=== PATIENT | male | born 1995 | race Two or more races ===

== ENCOUNTER 2020-06-12 01:21 | Emergency (ER) | payer OTHER ==
[~2020-06-12] VITALS: Ht 170.2 cm; Wt 75.0 kg
[2020-06-12] MEDS ORDERED: NALOXONE HCL 1 MG/ML 2 ML SYG IVP ONE (01:45)
[2020-06-12 01:57] LABS: BASOPHILS % (AUTO) 0.9 % (0.0-2.0); EOSINOPHILS % (AUTO) 1.7 % (1.0-6.0); HEMOGLOBIN 14.2 g/dL (13.5-17.5); LYMPHOCYTES # (AUTO) 2.3 K/uL (1.0-4.8); LYMPHOCYTES % (AUTO) 26.1 % (22.0-44.0); MEAN CORPUSCULAR HEMOGLOBIN 30.7 pg (26.0-34.0); MEAN CORPUSCULAR HGB CONC 33.9 G/dL (31.0-37.0); MEAN CORPUSCULAR VOLUME 91 fL (80-100); MONOCYTES # (AUTO) 0.7 K/uL (0.1-1.0); MONOCYTES % (AUTO) 7.6 % (2.0-9.0); NEUTROPHILS # (AUTO) 5.7 K/uL (1.8-7.7); NEUTROPHILS % (AUTO) 63.7 % (40.0-70.0); PLATELET COUNT (AUTO) 257 K/uL (150-450); RED BLOOD CELL COUNT(AUTO) 4.64 MIL/uL (4.50-5.90); RED CELL DISTRIBUTION WIDTH 13.8 % (11.5-14.5)
[2020-06-12 02:08] LABS: ANION GAP 10 mmol/L (8-16); CALCIUM, TOTAL 8.2 mg/dL (8.8-10.5); CARBON DIOXIDE 26 mmol/L (22-29); CHLORIDE 103 mmol/L (98-107); CREATININE 0.62 mg/dL (0.60-1.30); GLOMERULAR FILTR. RATE CALC > 60 mL/min (>60); GLUCOSE,RANDOM 106 mg/dL (70-110); POTASSIUM 3.4 mmol/L (3.5-5.1); SODIUM SERUM 139 mmol/L (136-145); UREA NITROGEN, BLOOD 9 mg/dL (7-18)
[2020-06-12 02:14] LABS: ACETAMINOPHEN 4 mcg/mL (10-30); ALANINE AMINOTRANSFERASE 334 U/L (12-78); ALBUMIN 3.3 g/dL (3.4-5.0); ALKALINE PHOSPHATASE 127 U/L (46-116); ASPARTATE AMINOTRANSFERASE 82 U/L (15-37); BILIRUBIN,TOTAL 0.6 mg/dL (0.1-1.0); TOTAL PROTEIN, SERUM 6.7 g/dL (6.4-8.2)
[2020-06-12 02:16] LABS: SALICYLATE < 2.8 mg/dL (2.8-20.0)
[2020-06-12] MEDS ORDERED: FLUMAZENIL 0.1 MG/ML 5 ML VIAL IVP ONE (02:30)
[2020-06-12 03:42] VITALS: BP 119/74
== END 2020-06-12 03:42 | disposition left against medical advice (07) ==
LOC: EMS 01:24
DX: T40.2X1A Poisoning by other opioids, accidental (unintentional), initial encounter (principal); T42.4X1A Poisoning by benzodiazepines, accidental (unintentional), initial encounter; R41.82 Altered mental status, unspecified; R79.89 Other specified abnormal findings of blood chemistry; F13.10 Sedative, hypnotic or anxiolytic abuse, uncomplicated; Y92.89 Other specified places as the place of occurrence of the external cause
CPT/HCPCS: 80053; 85025; 93005; 96374; 96375; 99291; G0480; J2310; J3490; G0481

== ENCOUNTER 2022-10-17 16:00 | Inpatient (IN) | payer OTHER ==
[~2022-10-17] VITALS: Ht 170.2 cm; Wt 76.0 kg
[2022-10-17] MEDS ORDERED: 0.9% SODIUM CHLORIDE 10 ML SYRINGE IVP PRN (17:00)
[2022-10-17] MEDS ORDERED: HYDROmorphone HCL 2 MG/ML SYRINGE IVP ONE (19:15)
[2022-10-17] MEDS ORDERED: ONDANSETRON HCL 4 MG/2 ML VIAL IVP ONE (19:15)
[2022-10-17 19:46] LABS: BASOPHILS % (AUTO) 0.9 % (0.0-2.0); EOSINOPHILS % (AUTO) 2.4 % (1.0-6.0); HEMATOCRIT 44.5 % (41-53); HEMOGLOBIN 14.7 g/dL (13.5-17.5); LYMPHOCYTES # (AUTO) 1.5 K/uL (1.0-4.8); LYMPHOCYTES % (AUTO) 27.2 % (22.0-44.0); MEAN CORPUSCULAR HEMOGLOBIN 29.6 pg (26.0-34.0); MEAN CORPUSCULAR HGB CONC 33.1 G/dL (31.0-37.0); MEAN CORPUSCULAR VOLUME 90 fL (80-100); MONOCYTES # (AUTO) 0.7 K/uL (0.1-1.0); MONOCYTES % (AUTO) 12.2 % (2.0-9.0); NEUTROPHILS # (AUTO) 3.1 K/uL (1.8-7.7); NEUTROPHILS % (AUTO) 57.3 % (40.0-70.0); PLATELET COUNT (AUTO) 255 K/uL (150-450); RED BLOOD CELL COUNT(AUTO) 4.97 MIL/uL (4.50-5.90); RED CELL DISTRIBUTION WIDTH 13.2 % (11.5-14.5)
[2022-10-17 19:56] LABS: ANION GAP 12 mmol/L (8-16); CARBON DIOXIDE 28 mmol/L (22-29); CHLORIDE 99 mmol/L (98-107); CREATININE 0.87 mg/dL (0.60-1.30); GLOMERULAR FILTR. RATE CALC > 60 mL/min (>60); GLUCOSE,RANDOM 93 mg/dL (70-110); SODIUM SERUM 139 mmol/L (136-145)
[2022-10-17 20:02] LABS: ALANINE AMINOTRANSFERASE 793 U/L (12-78); ALBUMIN 3.8 g/dL (3.4-5.0); ALKALINE PHOSPHATASE 121 U/L (46-116); ASPARTATE AMINOTRANSFERASE 418 U/L (15-37); BILIRUBIN,TOTAL 0.6 mg/dL (0.1-1.0); TOTAL PROTEIN, SERUM 7.5 g/dL (6.4-8.2)
[2022-10-17] MEDS ORDERED: SODIUM CHLORIDE 0.9% 100 ML ONE (20:43)
[2022-10-17] MEDS ORDERED: IOHEXOL 350 MG/ML 100 ML VIAL ONE (20:43)
[2022-10-17] MEDS ORDERED: ONDANSETRON HCL 4 MG/2 ML VIAL IVP PRN (20:45)
[2022-10-17] MEDS ORDERED: PIPERACILLIN/TAZO 3.375 GM/D5W 50 ML IV SCH (21:00)
[2022-10-17] MEDS ORDERED: VANCOMYCIN HCL 1.5 GM in DEXTROSE 5%-WATER 250 ML IV ONE (21:30)
[2022-10-17] MEDS: DOCUSATE SODIUM 100 MG CAPSULE PO SCH (22:47)
[2022-10-17] MEDS ORDERED: SODIUM CHLORIDE 0.9% 500 ML IV ONE (23:38)
[2022-10-17 23:52] VITALS: BP 101/60; PULSE 58; RESP 20; TEMP 97.8
[2022-10-18] MEDS: HEPARIN SODIUM,PORCINE 5,000 UNITS/ML VIAL SQ SCH ×4 (00:05→23:17)
[2022-10-18 04:45] VITALS: BP 112/69; PULSE 67; RESP 16; TEMP 97.8
[2022-10-18 06:55] LABS: ANION GAP 6 mmol/L (8-16); CALCIUM, TOTAL 8.7 mg/dL (8.8-10.5); CARBON DIOXIDE 30 mmol/L (22-29); CHLORIDE 102 mmol/L (98-107); CREATININE 0.81 mg/dL (0.60-1.30); GLOMERULAR FILTR. RATE CALC > 60 mL/min (>60); GLUCOSE,RANDOM 104 mg/dL (70-110); POTASSIUM 3.8 mmol/L (3.5-5.1); SODIUM SERUM 137 mmol/L (136-145)
[2022-10-18 07:19] VITALS: BP 102/57; PULSE 66; RESP 20; TEMP 98.4
[2022-10-18] MEDS: DOCUSATE SODIUM 100 MG CAPSULE PO SCH ×3 (08:27→22:38)
[2022-10-18] MEDS: VANCOMYCIN HCL 1.25 GM in DEXTROSE 5%-WATER 250 ML IV SCH ×3 (08:27→23:17)
[2022-10-18 08:46] LABS: APPEARANCE,URINE CLEAR (CLEAR); BILIRUBIN,URINE NEGATIVE (NEGATIVE); GLUCOSE, URINE (UA) NEGATIVE (NEGATIVE); KETONES,URINE NEGATIVE (NEGATIVE); LEUKOCYTE ESTERASE ,URINE SMALL (NEGATIVE); NITRATE,URINE NEGATIVE (NEGATIVE); OCCULT BLOOD,URINE NEGATIVE (NEGATIVE); PROTEIN,URINE TRACE mg/dL (NEGATIVE); UROBILINOGEN,URINE <=1.0 mg/dL (<=1.0)
[2022-10-18 08:49] LABS: SPECIFIC GRAVITIY, URINE > 1.030 (1.003-1.030)
[2022-10-18 08:54] LABS: BACTERIA,URINE None Seen /HPF (None Seen); RBC,URINE None Seen /HPF (0-2)
[2022-10-18 17:01] VITALS: BP 106/64; PULSE 69; RESP 20; TEMP 98.2
[2022-10-18 20:58] VITALS: BP 118/65; PULSE 78; RESP 20; TEMP 98.6
[2022-10-19 04:27] VITALS: BP 104/58; PULSE 74; RESP 20; TEMP 98.2
[2022-10-19 08:07] VITALS: BP 101/60; PULSE 74; RESP 18; TEMP 98
[2022-10-19] MEDS: DOCUSATE SODIUM 100 MG CAPSULE PO SCH ×2 (08:09→21:00)
[2022-10-19] MEDS: HEPARIN SODIUM,PORCINE 5,000 UNITS/ML VIAL SQ SCH ×3 (08:13→23:26)
[2022-10-19] MEDS: VANCOMYCIN HCL 1.25 GM in DEXTROSE 5%-WATER 250 ML IV SCH ×3 (08:13→23:26)
[2022-10-19 09:38] LABS: ALANINE AMINOTRANSFERASE 1186 U/L (12-78); ALBUMIN 3.3 g/dL (3.4-5.0); ALKALINE PHOSPHATASE 123 U/L (46-116); ANION GAP 6 mmol/L (8-16); ASPARTATE AMINOTRANSFERASE 579 U/L (15-37); BILIRUBIN,TOTAL 0.8 mg/dL (0.1-1.0); CARBON DIOXIDE 28 mmol/L (22-29); CHLORIDE 100 mmol/L (98-107); CREATININE 0.96 mg/dL (0.60-1.30); GLOMERULAR FILTR. RATE CALC > 60 mL/min (>60); GLUCOSE,RANDOM 104 mg/dL (70-110); POTASSIUM 3.8 mmol/L (3.5-5.1); SODIUM SERUM 134 mmol/L (136-145)
[2022-10-19 19:16] VITALS: BP 134/80; PULSE 98; RESP 20; TEMP 98.5
[2022-10-20 04:30] VITALS: BP 109/59; PULSE 83; RESP 18; TEMP 98.1
[2022-10-20 07:45] VITALS: BP 100/56; PULSE 68; RESP 20; TEMP 98.3
[2022-10-20] MEDS: VANCOMYCIN HCL 1.25 GM in DEXTROSE 5%-WATER 250 ML IV SCH ×2 (08:00→14:59)
[2022-10-20] MEDS: DOCUSATE SODIUM 100 MG CAPSULE PO SCH ×2 (08:41→20:28)
[2022-10-20] MEDS: HEPARIN SODIUM,PORCINE 5,000 UNITS/ML VIAL SQ SCH ×2 (08:41→16:20)
[2022-10-20] MEDS: CLINDAMYCIN HCL 300 MG CAPSULE PO SCH ×2 (09:19→16:20)
[2022-10-20 11:09] LABS: BASOPHILS % (AUTO) 0.6 % (0.0-2.0); EOSINOPHILS % (AUTO) 0.8 % (1.0-6.0); HEMATOCRIT 45.7 % (41-53); HEMOGLOBIN 14.9 g/dL (13.5-17.5); LYMPHOCYTES # (AUTO) 1.9 K/uL (1.0-4.8); LYMPHOCYTES % (AUTO) 24.4 % (22.0-44.0); MEAN CORPUSCULAR HGB CONC 32.6 G/dL (31.0-37.0); MEAN CORPUSCULAR VOLUME 89 fL (80-100); MONOCYTES # (AUTO) 0.9 K/uL (0.1-1.0); MONOCYTES % (AUTO) 11.4 % (2.0-9.0); NEUTROPHILS # (AUTO) 4.8 K/uL (1.8-7.7); NEUTROPHILS % (AUTO) 62.8 % (40.0-70.0); PLATELET COUNT (AUTO) 242 K/uL (150-450); RED BLOOD CELL COUNT(AUTO) 5.12 MIL/uL (4.50-5.90)
[2022-10-20 11:55] LABS: ALANINE AMINOTRANSFERASE 1419 U/L (12-78); ALBUMIN 3.4 g/dL (3.4-5.0); ALKALINE PHOSPHATASE 145 U/L (46-116); ANION GAP 7 mmol/L (8-16); ASPARTATE AMINOTRANSFERASE 646 U/L (15-37); BILIRUBIN,TOTAL 0.6 mg/dL (0.1-1.0); CARBON DIOXIDE 29 mmol/L (22-29); CHLORIDE 102 mmol/L (98-107); CREATININE 0.85 mg/dL (0.60-1.30); GLOMERULAR FILTR. RATE CALC > 60 mL/min (>60); GLUCOSE,RANDOM 103 mg/dL (70-110); POTASSIUM 4.1 mmol/L (3.5-5.1); SODIUM SERUM 138 mmol/L (136-145); TOTAL PROTEIN, SERUM 7.2 g/dL (6.4-8.2)
[2022-10-20] MEDS: ACETAMINOPHEN 325 MG TABLET PO PRN ×2 (14:32→20:27)
[2022-10-20 15:54] VITALS: BP 112/61; PULSE 77; RESP 20; TEMP 98.2
[2022-10-20 19:46] VITALS: BP 110/55; PULSE 77; RESP 20; TEMP 98.4
[2022-10-21] MEDS: CLINDAMYCIN HCL 300 MG CAPSULE PO SCH ×2 (01:08→09:27)
[2022-10-21] MEDS: ACETAMINOPHEN 325 MG TABLET PO PRN (01:11)
[2022-10-21 05:15] VITALS: BP 105/66; PULSE 65; RESP 20; TEMP 97.9
[2022-10-21 06:06] LABS: AFP (TUMOR MARKER) <1.8 ng/mL (0.0-5.7); HEPATITIS C AB (EIA) Reactive (Non Reactive)
[2022-10-21 07:07] VITALS: BP 114/68; PULSE 66; RESP 20; TEMP 97.7
[2022-10-21 07:32] LABS: ANION GAP 6 mmol/L (8-16); CALCIUM, TOTAL 8.6 mg/dL (8.8-10.5); CARBON DIOXIDE 29 mmol/L (22-29); CHLORIDE 103 mmol/L (98-107); CREATININE 0.85 mg/dL (0.60-1.30); GLOMERULAR FILTR. RATE CALC > 60 mL/min (>60); GLUCOSE,RANDOM 95 mg/dL (70-110); SODIUM SERUM 138 mmol/L (136-145)
[2022-10-21] MEDS: VANCOMYCIN HCL 1.25 GM in DEXTROSE 5%-WATER 250 ML IV SCH ×3 (08:00)
[2022-10-21] MEDS: DOCUSATE SODIUM 100 MG CAPSULE PO SCH (09:00)
[2022-10-21] MEDS ORDERED: PANTOPRAZOLE SODIUM 40 MG DR TABLET PO SCH (09:00)
[2022-10-21] MEDS: HEPARIN SODIUM,PORCINE 5,000 UNITS/ML VIAL SQ SCH ×2 (09:27)
[2022-10-21] MEDS ORDERED: CLIN300C58 PO (13:37)
[2022-10-23 14:07] LABS: HEPATITIS C RT-PCR,QNT 313000 IU/mL
== END 2022-10-21 11:50 | disposition left against medical advice (07) | DRG 920 ==
LOC: EMS 16:02 → 6N 21:53 → 6S 23:32
PROVIDERS: ADMIT Internal Medicine; ATTEND Internal Medicine
DX: T85.79XA Infection and inflammatory reaction due to other internal prosthetic devices, implants and grafts, initial encounter (principal); L03.115 Cellulitis of right lower limb; Z53.29 Procedure and treatment not carried out because of patient's decision for other reasons; R79.89 Other specified abnormal findings of blood chemistry; K75.9 Inflammatory liver disease, unspecified; Y83.8 Other surgical procedures as the cause of abnormal reaction of the patient, or of later complication, without mention of misadventure at the time of the procedure; Z91.199 Patient's noncompliance with other medical treatment and regimen due to unspecified reason; Y92.89 Other specified places as the place of occurrence of the external cause
CPT/HCPCS: 71045; 74177; 76705; 80048; 80053; 80202; 81001; 82105; 82390; 83605; 84145; 85025; 86038; 86704; 86706; 86709; 86803; 87040; 87340; 87522; 93005; 99285; J1170; J1644; J2405; J2543; J3370; J7040; J7050; J7060; Q9967; 36415-L1; 36415-TC

== ENCOUNTER → 2023-10-09 | Outpatient (CLI) | payer OTHER ==
[~2023-10-09] MED LIST: CLIN300C58 PO
== END | disposition home or self-care (01) ==
LOC: RADPV 08:09
PROVIDERS: ATTEND Family Medicine
DX: N43.3 Hydrocele, unspecified (principal); D29.20 Benign neoplasm of unspecified testis; R10.11 Right upper quadrant pain
CPT/HCPCS: 76705; 76870

== ENCOUNTER 2024-04-12 11:49 | Emergency (ER) | payer OTHER ==
[~2024-04-12] VITALS: Ht 165.1 cm; Wt 97.7 kg
[2024-04-12 11:56] VITALS: TEMP 98.6
[2024-04-12] MEDS ORDERED: SULF-261 PO (15:09)
[2024-04-12] MEDS ORDERED: IBUP-1492 PO (15:09)
[2024-04-12] MEDS: IBUPROFEN 600 MG TABLET PO ONE (15:18)
[2024-04-12] MEDS: SULFAMETHOX/TRIMETH DS 800-160 MG/TABLET PO ONE (15:18)
[2024-04-12 15:39] VITALS: BP 127/79; PULSE 73; RESP 18; O2SAT 99
== END 2024-04-12 15:47 | disposition home or self-care (01) ==
LOC: EMS 11:49
DX: H61.23 Impacted cerumen, bilateral (principal); H60.13 Cellulitis of external ear, bilateral
CPT/HCPCS: 69209; 99283